=== PATIENT | male | born 1955 | race Caucasian/White ===

== ENCOUNTER 2017-12-05 16:24 | Inpatient (IN) | payer OTHER ==
[~2017-12-05] VITALS: Ht 167.6 cm; Wt 73.1 kg
[~2017-12-05 16:24] MED LIST: LOPRESSOR50 MG PO
[2017-12-05] MEDS ORDERED: METOPROLOL PO (19:52)
[2017-12-05] MEDS ORDERED: GLUCOPHAGE1000 MG PO (19:52)
[2017-12-05] MEDS ORDERED: FLEXERIL10 MG PO (19:52)
[2017-12-05] MEDS ORDERED: COZAAR50 MG PO (19:52)
[2017-12-05] MEDS ORDERED: NEURONTIN300 MG PO (19:52)
[2017-12-05] MEDS ORDERED: ZOLOFT50 MG PO (19:52)
[2017-12-05] MEDS ORDERED: VITAMIN D31000 UNIT PO (19:53)
[2017-12-05] MEDS ORDERED: ECOTRIN325 MG PO (19:53)
[2017-12-05 20:28] LABS: HEMATOCRIT 33.6 % (38.0-50.0); MCH 30.1 PG (29.0-34.0); MCHC 32.7 G/DL (30.0-36.0); MCV 91.8 FL (86-99); PLATELET COUNT 283 K/uL (156-360); RBC DIS.WIDTH-CV 13.7 % (11.8-14.6); RBC DIS.WIDTH-SD 46.1 % (39-53); RED BLOOD COUNT 3.66 M/uL (4.00-5.50); WHITE BLOOD COUNT 13.3 K/uL (4.1-10.2)
[2017-12-05 20:39] LABS: CHLORIDE 105 mEq/L (99-109); POTASSIUM 4.4 mEq/L (3.7-5.4); SODIUM 138 mEq/L (136-147)
[2017-12-05 20:40] LABS: GLUCOSE 151 mg/dL (70-99)
[2017-12-05 20:44] LABS: CREATININE 1.5 mg/dL (0.6-1.3); GFR ESTIMATE (CALCULATED) 50 mL/min/ (58.99-99999)
[2017-12-05 20:45] LABS: UREA NITROGEN (BUN) 26 mg/dL (9-23)
[2017-12-06] VITALS (7 sets, daily range): BP systolic 133–210; BP diastolic 64–118
[2017-12-07 00:38] VITALS: BP 138/96
[2017-12-07 03:56] VITALS: BP 184/99
[2017-12-07 04:29] LABS: BASOPHIL (%) 0.3 % (0-1); BASOPHIL COUNT 0.1 K/uL (0-0.1); EOSINOPHIL (%) 0 % (0-5); HEMATOCRIT 35.2 % (38.0-50.0); HEMOGLOBIN 11.6 G/DL (12.5-16.6); IMMATURE GRANULOCYTE (%) 1.6 % (0.0-0.7); LYMPHOCYTE (%) 9.8 % (15-42); LYMPHOCYTE COUNT 1.9 K/uL (1.0-2.8); MCH 29.2 PG (29.0-34.0); MCV 88.7 FL (86-99); MONOCYTE (%) 4.7 % (3-12); MONOCYTE COUNT 0.9 K/uL (0-0.8); NEUTROPHIL (%) 83.6 % (45-76); NEUTROPHIL COUNT 16.4 K/uL (1.8-6.4); RBC DIS.WIDTH-CV 13.5 % (11.8-14.6); RED BLOOD COUNT 3.97 M/uL (4.00-5.50); WHITE BLOOD COUNT 19.7 K/uL (4.1-10.2)
[2017-12-07 04:39] LABS: PLATELET COUNT 389 K/uL (156-360)
[2017-12-07 04:41] LABS: ALBUMIN 4.1 g/dL (3.2-4.8); CHLORIDE 105 mEq/L (99-109); SODIUM 137 mEq/L (136-147)
[2017-12-07 04:43] LABS: GLUCOSE 225 mg/dL (70-99)
[2017-12-07 04:44] LABS: TOTAL PROTEIN 7.2 g/dL (6.4-8.3)
[2017-12-07 04:45] LABS: TOTAL BILIRUBIN 0.4 mg/dL (0.0-1.0)
[2017-12-07 04:47] LABS: ALKALINE PHOSPHATASE 504 IU/L (3-129); CREATININE 1.6 mg/dL (0.6-1.3); GFR ESTIMATE (CALCULATED) 46 mL/min/ (58.99-99999)
[2017-12-07 04:48] LABS: UREA NITROGEN (BUN) 27 mg/dL (9-23)
[2017-12-07 04:49] LABS: AST (GOT) 17 IU/L (2-34)
[2017-12-07 04:50] LABS: ALT (GPT) 18 IU/L (3-49)
[2017-12-07 07:09] LABS: APPEARANCE CLEAR ((CLEAR)); BILIRUBIN NEGATIVE; BLOOD NEGATIVE; COLOR STRAW ((YELLOW)); GLUCOSE (STRIP) 150; KETONES NEGATIVE; LEUKOCYTES NEGATIVE; NITRITE NEGATIVE; PROTEIN (STRIP) NEGATIVE; SPECIFIC GRAVITY 1.025 (1.000-1.030); UCUL ADDED? NO; UROBILINOGEN 0.2 MG/DL (0.2-1.0)
[2017-12-07 08:10] VITALS: BP 180/90
[2017-12-07] MEDS ORDERED: GLIMEPIRIDE4 MG PO (09:38)
[2017-12-07] MEDS ORDERED: TESSALON200 MG PO (09:38)
[2017-12-07] MEDS ORDERED: LOPRESSOR50 MG PO (09:39)
[2017-12-07] MEDS ORDERED: LISINOPRIL20 MG PO (09:39)
[2017-12-07 16:32] VITALS: BP 130/60
[2017-12-07 16:47] LABS: PHOSPHORUS 3.8 mg/dL (2.5-4.9); URIC ACID 5.9 mg/dL (3.1-9.2)
[2017-12-07 17:02] LABS: C-REACTIVE PROTEIN 12.5 MG/L (0-10)
[2017-12-07 20:21] VITALS: BP 133/80
[2017-12-07 20:55] LABS: URINE TOTAL PROTEIN 9 MG/DL (0-10)
[2017-12-08 00:34] VITALS: BP 180/93
[2017-12-08 05:27] VITALS: BP 182/90
[2017-12-08 07:34] LABS: BASOPHIL (%) 0.3 % (0-1); BASOPHIL COUNT 0.1 K/uL (0-0.1); EOSINOPHIL (%) 0.1 % (0-5); HEMATOCRIT 36.3 % (38.0-50.0); HEMOGLOBIN 11.6 G/DL (12.5-16.6); IMMATURE GRANULOCYTE (%) 3.6 % (0.0-0.7); LYMPHOCYTE (%) 8.4 % (15-42); LYMPHOCYTE COUNT 1.6 K/uL (1.0-2.8); MCH 28.4 PG (29.0-34.0); MCV 88.8 FL (86-99); MONOCYTE (%) 5.5 % (3-12); MONOCYTE COUNT 1.1 K/uL (0-0.8); NEUTROPHIL (%) 82.1 % (45-76); PLATELET COUNT 356 K/uL (156-360); RBC DIS.WIDTH-CV 13.4 % (11.8-14.6); RBC DIS.WIDTH-SD 43.7 % (39-53); RED BLOOD COUNT 4.09 M/uL (4.00-5.50); WHITE BLOOD COUNT 19.5 K/uL (4.1-10.2)
[2017-12-08 07:51] LABS: INTER. NORMALIZED RATIO 1.3
[2017-12-08 08:01] VITALS: BP 174/87
[2017-12-08 08:03] LABS: ALBUMIN 3.9 G/DL (3.2-4.8); CHLORIDE 103 MEQ/L (99-109); CREATININE 1.4 MG/DL (0.6-1.3); GFR ESTIMATE (CALCULATED) 54 mL/min/ (58.99-99999); GLUCOSE 175 mg/dL (70-99); PHOSPHORUS 3.7 mg/dL (2.5-4.9); POTASSIUM 4.7 MEQ/L (3.7-5.4); SODIUM 136 MEQ/L (136-147); UREA NITROGEN (BUN) 30 mg/dL (9-23)
[2017-12-08 16:34] VITALS: BP 172/99
[2017-12-08 17:47] VITALS: BP 172/99
[2017-12-09 00:11] VITALS: BP 216/105
[2017-12-09 01:42] VITALS: BP 168/90
[2017-12-09 06:45] LABS: CHLORIDE 99 MEQ/L (99-109); CREATININE 1.3 MG/DL (0.6-1.3); GFR ESTIMATE (CALCULATED) > 59 mL/min/ (58.99-99999); GLUCOSE 167 mg/dL (70-99); PHOSPHORUS 3.9 mg/dL (2.5-4.9); POTASSIUM 4.6 MEQ/L (3.7-5.4); SODIUM 135 MEQ/L (136-147); UREA NITROGEN (BUN) 34 mg/dL (9-23)
[2017-12-09 07:43] VITALS: BP 180/90
[2017-12-09 15:53] VITALS: BP 130/60
[2017-12-09 23:48] VITALS: BP 162/86
[2017-12-10 08:05] VITALS: BP 187/94
[2017-12-10 10:16] LABS: ALBUMIN 4.2 G/DL (3.2-4.8); CHLORIDE 99 MEQ/L (99-109); CREATININE 1.4 MG/DL (0.6-1.3); GFR ESTIMATE (CALCULATED) 54 mL/min/ (58.99-99999); GLUCOSE 200 mg/dL (70-99); PHOSPHORUS 3.8 mg/dL (2.5-4.9); POTASSIUM 4.7 MEQ/L (3.7-5.4); SODIUM 134 MEQ/L (136-147); UREA NITROGEN (BUN) 39 mg/dL (9-23)
[2017-12-10 15:37] VITALS: BP 193/86
[2017-12-10 18:14] VITALS: BP 129/67
[2017-12-10 22:30] VITALS: BP 138/71
[2017-12-11 07:27] LABS: BASOPHIL (%) 0.5 % (0-1); BASOPHIL COUNT 0.1 K/uL (0-0.1); EOSINOPHIL (%) 0.1 % (0-5); HEMATOCRIT 36.8 % (38.0-50.0); HEMOGLOBIN 12.2 G/DL (12.5-16.6); IMMATURE GRANULOCYTE (%) 3.6 % (0.0-0.7); LYMPHOCYTE COUNT 2.5 K/uL (1.0-2.8); MCHC 33.2 G/DL (30.0-36.0); MCV 87.6 FL (86-99); MONOCYTE (%) 6.5 % (3-12); MONOCYTE COUNT 1.6 K/uL (0-0.8); NEUTROPHIL (%) 79.3 % (45-76); NEUTROPHIL COUNT 20.1 K/uL (1.8-6.4); NRBC (%) 0.1 /100 WBC (0-0); PLATELET COUNT 360 K/uL (156-360); RBC DIS.WIDTH-CV 13.7 % (11.8-14.6); RBC DIS.WIDTH-SD 43.4 % (39-53); WHITE BLOOD COUNT 25.3 K/uL (4.1-10.2)
[2017-12-11 07:55] LABS: CHLORIDE 100 MEQ/L (99-109); CREATININE 1.3 MG/DL (0.6-1.3); GFR ESTIMATE (CALCULATED) > 59 mL/min/ (58.99-99999); GLUCOSE 181 mg/dL (70-99); POTASSIUM 4.7 MEQ/L (3.7-5.4); SODIUM 134 MEQ/L (136-147); UREA NITROGEN (BUN) 42 mg/dL (9-23)
[2017-12-11 08:54] VITALS: BP 120/70
[2017-12-11] MEDS ORDERED: OLANZAPINE5 MG PO (12:41)
[2017-12-11] MEDS ORDERED: MEDROL DOSEPAK4 MG PO (12:45)
[2017-12-11] MEDS ORDERED: PROCARDIA XL30 MG PO (13:26)
[2017-12-11] MEDS ORDERED: OMEPRAZOLE10 M1 PO (13:27)
== END 2017-12-11 14:13 | disposition home or self-care (01) | DRG 552 ==
LOC: EME 16:24 → ENRESERV 23:27 → EDOF 23:30 → 3EAST 23:30 → ENRESERV 12-06 00:14 → 3EAST 12-06 01:09 → ENRESERV 12-10 11:49 → 3EAST 12-10 12:55
PROVIDERS: Hospitalist; Internal Medicine; Internal Medicine Nephrology; Internal Medicine Pulmonary Disease; Physician Assistant; Student in an Organized Health Care Education/Training Program
PROC: 0BBJ3ZX Excision of Left Lower Lung Lobe, Percutaneous Approach, Diagnostic (ICD-10-PCS; principal; 2017-12-05)
DX: M48.02 Spinal stenosis, cervical region (principal); C34.90 Malignant neoplasm of unspecified part of unspecified bronchus or lung; N17.9 Acute kidney failure, unspecified; M54.5 Low back pain; I10 Essential (primary) hypertension; Z87.891 Personal history of nicotine dependence; M50.222 Other cervical disc displacement at C5-C6 level; K40.90 Unilateral inguinal hernia, without obstruction or gangrene, not specified as recurrent; I86.1 Scrotal varices; R41.82 Altered mental status, unspecified; M19.90 Unspecified osteoarthritis, unspecified site; R53.1 Weakness; Z79.899 Other long term (current) drug therapy; R33.9 Retention of urine, unspecified; E11.9 Type 2 diabetes mellitus without complications; F39 Unspecified mood [affective] disorder; G89.29 Other chronic pain; W18.30XA Fall on same level, unspecified, initial encounter; S09.90XA Unspecified injury of head, initial encounter; N13.30 Unspecified hydronephrosis; R33.8 Other retention of urine; N43.41 Spermatocele of epididymis, single
CPT/HCPCS: 70450; 71045; 71260; 71550; 72157; 76770; 76870; 77012; 80048; 80053; 80069; 81003; 82232; 82948; 83605; 83883 90; 84100; 84550; 85025; 85027; 85610; 85651; 86140; 86334; 86335; 87040; 88305; 88341 TC; 88342 TC; 93005; 93306; 93880; 94799; 99281; 99285; A6214; J0360; J1100; J1630; J1644; J1815; J2060; J3010; J7030

== ENCOUNTER 2018-01-03 05:07 | Emergency (ER) | payer OTHER ==
[~2018-01-03] VITALS: Ht 167.6 cm; Wt 65.3 kg
[~2018-01-03 05:07] MED LIST changes: +COZAAR50 MG PO; +ECOTRIN325 MG PO; +FLEXERIL10 MG PO; +GLIMEPIRIDE4 MG PO; +GLUCOPHAGE1000 MG PO; +LISINOPRIL20 MG PO; +MEDROL DOSEPAK4 MG PO; +METOPROLOL PO; +NEURONTIN300 MG PO; +OLANZAPINE5 MG PO; +OMEPRAZOLE10 M1 PO; +PROCARDIA XL30 MG PO; +TESSALON200 MG PO; +VITAMIN D31000 UNIT PO; +ZOLOFT50 MG PO
[2018-01-03 06:19] LABS: INTER. NORMALIZED RATIO 1.4
[2018-01-03 06:21] LABS: PTT 27.8 SEC (25-37)
[2018-01-03 06:24] LABS: BASOPHIL (%) 0.4 % (0-1); EOSINOPHIL (%) 3.8 % (0-5); EOSINOPHIL COUNT 0.4 K/uL (0-0.3); HEMATOCRIT 26.3 % (38.0-50.0); HEMOGLOBIN 8.8 G/DL (12.5-16.6); IMMATURE GRANULOCYTE (%) 2.6 % (0.0-0.7); LYMPHOCYTE (%) 19.3 % (15-42); LYMPHOCYTE COUNT 2.2 K/uL (1.0-2.8); MCH 28.7 PG (29.0-34.0); MCHC 33.5 G/DL (30.0-36.0); MCV 85.7 FL (86-99); MONOCYTE (%) 12.6 % (3-12); MONOCYTE COUNT 1.4 K/uL (0-0.8); NEUTROPHIL (%) 61.3 % (45-76); PLATELET COUNT 384 K/uL (156-360); RBC DIS.WIDTH-CV 14.2 % (11.8-14.6); RBC DIS.WIDTH-SD 43.8 % (39-53); RED BLOOD COUNT 3.07 M/uL (4.00-5.50); WHITE BLOOD COUNT 11.4 K/uL (4.1-10.2)
[2018-01-03 06:30] LABS: TROP-I INTERPRETATION NEGATIVE; TROPONIN-I 0.02 ng/mL (0.0-0.30)
[2018-01-03 07:02] LABS: ALKALINE PHOSPHATASE 146 IU/L (3-129); ALT (GPT) 13 IU/L (3-49); AST (GOT) 16 IU/L (2-34); CHLORIDE 116 MEQ/L (99-109); DIRECT BILIRUBIN 0.2 mg/dL (0.0-0.3); GFR ESTIMATE (CALCULATED) > 59 mL/min/ (58.99-99999); GLUCOSE 121 mg/dL (70-99); POTASSIUM 3.9 MEQ/L (3.7-5.4); SODIUM 147 MEQ/L (136-147); TOTAL BILIRUBIN 0.7 MG/DL (0.0-1.0); TOTAL PROTEIN 5.3 G/DL (6.4-8.3); UREA NITROGEN (BUN) 18 mg/dL (9-23)
[2018-01-03 08:19] VITALS: BP 146/99
== END 2018-01-03 08:22 | disposition home or self-care (01) ==
LOC: EME 05:07
PROVIDERS: Emergency Medicine
DX: E11.649 Type 2 diabetes mellitus with hypoglycemia without coma (principal); Z79.84 Long term (current) use of oral hypoglycemic drugs; C79.51 Secondary malignant neoplasm of bone; C34.90 Malignant neoplasm of unspecified part of unspecified bronchus or lung; I10 Essential (primary) hypertension; Z87.891 Personal history of nicotine dependence; Z92.3 Personal history of irradiation
CPT/HCPCS: 80048; 80076; 81003; 83605; 84484; 85025; 85610; 85730; 99281; 99285

== ENCOUNTER 2018-01-06 13:08 | Emergency (ER) | payer OTHER ==
[~2018-01-06] VITALS: Ht 167.6 cm; Wt 71.1 kg
[2018-01-06 16:27] VITALS: BP 112/69
== END 2018-01-06 16:28 | disposition home or self-care (01) ==
LOC: EME 13:08
PROVIDERS: Emergency Medicine
DX: S40.011A Contusion of right shoulder, initial encounter (principal); R53.1 Weakness; W10.9XXA Fall (on) (from) unspecified stairs and steps, initial encounter; C79.51 Secondary malignant neoplasm of bone; C34.90 Malignant neoplasm of unspecified part of unspecified bronchus or lung; Z92.3 Personal history of irradiation; I10 Essential (primary) hypertension; Z87.891 Personal history of nicotine dependence
CPT/HCPCS: 70450; 72125; 73030; 82948; 93005; 99281; 99284

== ENCOUNTER 2018-01-20 18:21 | Inpatient (IN) | payer OTHER ==
[~2018-01-20] VITALS: Ht 167.6 cm; Wt 66.6 kg
[~2018-01-20 18:21] MED LIST changes: -ECOTRIN325 MG PO; +LO-DOSE ASPIRIN81 M2 PO
[2018-01-20 19:54] LABS: APPEARANCE SL.HAZY ((CLEAR)); COLOR YELLOW ((YELLOW)); LEUKOCYTES NEGATIVE; NITRITE NEGATIVE
[2018-01-20 19:55] LABS: BILIRUBIN NEGATIVE; BLOOD NEGATIVE; GLUCOSE (STRIP) NEGATIVE; KETONES NEGATIVE; PROTEIN (STRIP) 30
[2018-01-20 20:28] LABS: RED BLOOD CELLS TNTC /HPF (0-5); WHITE BLOOD CELLS RARE /HPF (0-5)
[2018-01-20 20:29] LABS: EPITHELIAL CELLS 1+ /HPF
[2018-01-20 20:30] LABS: AMORPHOUS URATES CRYSTALS 1+; BACTERIA RARE /HPF; FINE GRANULAR CASTS RARE /LPF; UCUL ADDED? YES
[2018-01-20 20:31] LABS: MUCUS TRACE /LPF
[2018-01-20 20:38] LABS: CHLORIDE 94 mEq/L (99-109); POTASSIUM 4.9 mEq/L (3.7-5.4); SODIUM 127 mEq/L (136-147)
[2018-01-20 20:39] LABS: GLUCOSE 55 mg/dL (70-99)
[2018-01-20 20:43] LABS: CREATININE 1.1 mg/dL (0.6-1.3); GFR ESTIMATE (CALCULATED) > 59 mL/min/ (58.99-99999)
[2018-01-20 20:44] LABS: UREA NITROGEN (BUN) 29 mg/dL (9-23)
[2018-01-20 21:05] LABS: BASOPHIL (%) 0.4 % (0-1); BASOPHIL COUNT 0.1 K/uL (0-0.1); EOSINOPHIL (%) 1.5 % (0-5); EOSINOPHIL COUNT 0.2 K/uL (0-0.3); HEMATOCRIT 21.5 % (38.0-50.0); IMMATURE GRANULOCYTE (%) 3.4 % (0.0-0.7); LYMPHOCYTE (%) 15.2 % (15-42); LYMPHOCYTE COUNT 2.5 K/uL (1.0-2.8); MCH 27.9 PG (29.0-34.0); MCHC 32.6 G/DL (30.0-36.0); MCV 85.7 FL (86-99); MONOCYTE (%) 7.9 % (3-12); MONOCYTE COUNT 1.3 K/uL (0-0.8); NEUTROPHIL (%) 71.6 % (45-76); NEUTROPHIL COUNT 11.6 K/uL (1.8-6.4); NRBC (%) 0.7 /100 WBC (0-0); PLAT.SUFFICIENCY ADEQUATE; PLATELET COUNT 230 K/uL (156-360); RBC DIS.WIDTH-CV 16.2 % (11.8-14.6); RBC DIS.WIDTH-SD 49.4 % (39-53); RED BLOOD COUNT 2.51 M/uL (4.00-5.50); WHITE BLOOD COUNT 16.3 K/uL (4.1-10.2)
[2018-01-21] VITALS (10 sets, daily range): BP systolic 113–133; BP diastolic 59–87
[2018-01-21 01:10] LABS: TROP-I INTERPRETATION NEGATIVE
[2018-01-21 02:13] LABS: HDL CHOLESTEROL 25 MG/DL (Desirable>=40); LDL CHOLESTEROL 57 mg/dL (Desirable<100); NON-HDL CHOLESTEROL 110 mg/dL (Desirable<160); TOTAL CHOLESTEROL 135 mg/dL (Desirable<200); TRIGLYCERIDES 265 MG/DL (Normal: <150)
[2018-01-21 05:53] LABS: HEMATOCRIT 26.2 % (38.0-50.0); HEMOGLOBIN 8.5 G/DL (12.5-16.6); MCH 27.7 PG (29.0-34.0); MCHC 32.4 G/DL (30.0-36.0); MCV 85.3 FL (86-99); PLATELET COUNT 229 K/uL (156-360); RBC DIS.WIDTH-CV 15.7 % (11.8-14.6); RBC DIS.WIDTH-SD 47.5 % (39-53); WHITE BLOOD COUNT 16.7 K/uL (4.1-10.2)
[2018-01-21 05:59] LABS: RED BLOOD COUNT 3.07 M/uL (4.00-5.50)
[2018-01-21 06:03] LABS: GLUCOSE 30 mg/dL (70-99)
[2018-01-21 06:32] LABS: TROP-I INTERPRETATION NEGATIVE; TROPONIN-I 0.24 ng/mL (0.0-0.30)
[2018-01-21 06:50] LABS: CHLORIDE 92 MEQ/L (99-109); MAGNESIUM 1.9 mg/dl (1.3-2.7); POTASSIUM 4.7 MEQ/L (3.7-5.4); SODIUM 126 MEQ/L (136-147)
[2018-01-21 06:55] LABS: CREATININE 1.1 MG/DL (0.6-1.3); GFR ESTIMATE (CALCULATED) > 59 mL/min/ (58.99-99999); PHOSPHORUS 4.8 mg/dL (2.5-4.9); UREA NITROGEN (BUN) 28 mg/dL (9-23)
[2018-01-21 08:57] LABS: THYROTROPIN (TSH) 2.3 MIU/L (0.4-5.5)
[2018-01-21 10:18] LABS: FOLIC ACID (FOLATE) 13.9 NG/ML (5.0-22.0)
[2018-01-21 12:39] LABS: TROP-I INTERPRETATION NEGATIVE
[2018-01-21 12:52] LABS: HEMOGLOBIN A1c (GLYCOHEMOGLOB) 7.1 % (Below 5.7)
[2018-01-21 18:17] LABS: GLUCOSE 31 mg/dL (70-99)
[2018-01-22 00:02] VITALS: BP 148/72
[2018-01-22 03:43] VITALS: BP 126/67
[2018-01-22 07:25] VITALS: BP 127/77
[2018-01-22 12:25] VITALS: BP 139/73
[2018-01-22] MEDS ORDERED: DECADRON4 M1 PO (13:35)
== END 2018-01-22 15:44 | disposition hospice, home (50) | DRG 64 ==
LOC: EME 18:21 → EDOF 22:18 → 5SOUTH 22:18 → ENRESERV 22:24 → 5SOUTH 23:58
PROVIDERS: Emergency Medicine; Family Medicine; Hospitalist
PROC: 30233N1 Transfusion of Nonautologous Red Blood Cells into Peripheral Vein, Percutaneous Approach (ICD-10-PCS; principal; 2018-01-21)
DX: I63.8 Other cerebral infarction (principal); R29.810 Facial weakness; R47.1 Dysarthria and anarthria; R53.1 Weakness; R29.708 NIHSS score 8; C79.31 Secondary malignant neoplasm of brain; C34.32 Malignant neoplasm of lower lobe, left bronchus or lung; C79.51 Secondary malignant neoplasm of bone; C78.7 Secondary malignant neoplasm of liver and intrahepatic bile duct; C79.72 Secondary malignant neoplasm of left adrenal gland; C79.89 Secondary malignant neoplasm of other specified sites; E11.649 Type 2 diabetes mellitus with hypoglycemia without coma; E11.65 Type 2 diabetes mellitus with hyperglycemia; N13.30 Unspecified hydronephrosis; E46 Unspecified protein-calorie malnutrition; Z66 Do not resuscitate; Z51.5 Encounter for palliative care; Z68.23 Body mass index [BMI] 23.0-23.9, adult; D68.59 Other primary thrombophilia; E87.1 Hypo-osmolality and hyponatremia; D63.0 Anemia in neoplastic disease; D64.89 Other specified anemias; Y84.2 Radiological procedure and radiotherapy as the cause of abnormal reaction of the patient, or of later complication, without mention of misadventure at the time of the procedure; J18.9 Pneumonia, unspecified organism; R45.1 Restlessness and agitation; M48.00 Spinal stenosis, site unspecified; I10 Essential (primary) hypertension; M54.5 Low back pain; G89.29 Other chronic pain; K40.90 Unilateral inguinal hernia, without obstruction or gangrene, not specified as recurrent; N50.3 Cyst of epididymis; N43.41 Spermatocele of epididymis, single; I86.1 Scrotal varices; Z87.891 Personal history of nicotine dependence; Z92.3 Personal history of irradiation
CPT/HCPCS: 70450; 70551; 74177; 80048; 80048 91; 80061; 81003; 82272; 82607; 82746; 82948; 83036; 83735; 84100; 84439; 84443; 84484; 84999; 85025; 85027; 86850; 86900; 86901; 86920; 87040; 87086; 94799; 97530 GO; 99281; 99285; A6214; J0456; J0696; J1100; J1650; J1815; J2060; J2270; J7030; J7042; P9016